=== PATIENT | male | born 1945 | race African-American/Black ===

== ENCOUNTER 2018-01-17 14:26 | Emergency (ER) | payer OTHER ==
[2018-01-17 15:14] VITALS: BMI 28.7
[2018-01-17] MEDS ORDERED: IBUPROFEN 600 MG TABLET (FP) PO ONE ×2 (15:21→15:50)
[2018-01-17 15:50] LABS: BASO % 0.6 % (0-2.0); HEMATOCRIT 44.1 % (35.4-49); HEMOGLOBIN 14.9 GM/dL (11.7-16.9); LYMPH % 22.8 % (8-40); MCH 31.4 pg (25.7-33.7); MCHC 33.9 g/dl (32.0-35.9); MEAN CELL VOLUME 92.8 fl (80-96); MEAN PLT VOLUME 7.7 fl (7.5-11.1); MONO % 7.8 % (3.8-10.2); NEUT % 66.8 % (42.8-82.8); PLATELET COUNT 174 K/MM3 (134-434); RBC 4.76 M/mm3 (4.00-5.60); RDW 13.8 % (11.9-15.9)
[2018-01-17 16:15] LABS: ALBUMIN 4.3 g/dl (3.4-5.0); ALK PHOS 62 U/L (45-117); ANION GAP 12 (8-16); BILIRUBIN,TOTAL 0.6 mg/dL (0.2-1.0); BLOOD UREA NITROGEN 17 mg/dL (7-18); CALCIUM 9.2 mg/dL (8.5-10.1); CHLORIDE 106 mmol/L (98-107); CO2 23 mmol/L (21-32); CREATININE 1.1 mg/dL (0.7-1.3); GLUCOSE,RANDOM 110 mg/dL (74-106); SGOT/AST 19 U/L (15-37); SGPT/ALT 25 U/L (12-78); SODIUM 141 mmol/L (136-145); TOT PROT 7.7 g/dl (6.4-8.2); URIC ACID 7.3 mg/dL (2.6-7.2)
[2018-01-17] MEDS ORDERED: COLCHICINE 0.6 MG TABLET (FP) PO ONE ×2 (16:27→17:49)
--- NOTE | 2018-01-17 16:33 | PDOC ---
History of Present Illness - General Chief Complaint: Chronic pain Stated Complaint: BACK PAIN Time Seen by Provider: 01/17/18 14:33 History Source: Patient Exam Limitations: No Limitations - History of Present Illness Initial Comments: 01/17/18 16:33 72-year-old male with history of gout and chronic back pain presents the ED with complaints of left knee pain worsening in severity over the past month. Patient came to [place] a few weeks ago from [place] via plane to visit his son and states pain and swelling increase. Patient states takes oxycodone for his back pain which did alleviate his knee slightly but not to the point that he can function and ambulate. Patient has no calf pain, history of DVT, difficulty breathing currently, chest pain, or skin discoloration. Timing/Duration: constant, getting worse Severity: moderate Associated Symptoms: reports: denies symptoms Past History - Travel Traveled outside of the country in the last 30 days: No - Past Medical History Allergies/Adverse Reactions: Allergies Allergy/AdvReac Type Severity Reaction Status Date / Time No Known Allergies Allergy Verified 01/17/18 15:00 Home Medications: Ambulatory Orders Amlodipine Besylate 10 mg PO DAILY 01/17/18 Gabapentin 400 mg PO TID 01/17/18 Hydrocodone/Acetaminophen [Hydrocodon-Acetaminophn 10-325] 1 each PO BID Ibuprofen [Motrin -] 600 mg PO TID PRN #21 tablet 01/17/18 Lisinopril [Prinivil -] 40 mg PO DAILY 01/17/18 COPD: No HTN: Yes - Suicide/Smoking/Psychosocial Hx Smoking History: Never smoked Hx Alcohol Use: No Drug/Substance Use Hx: No Patient Lives Alone: Yes Lives with/in: lives alone Review of Systems - Review of Systems Able to Perform ROS?: Yes Constitutional: No: Symptoms Reported HEENTM: No: Symptoms Reported Respiratory: No: SOB with Exertion Musculoskeletal: Yes: Back Pain (low chronic), Joint Pain (left knee), Joint Swelling (left knee), Joint Stiffness. No: Muscle Pain Integumentary: No: Symptoms Reported Neurological: No: Symptoms reported Hematologic/Lymphatic: No: Symptoms Reported *Physical Exam - Vital Signs Last Vital Signs Temp Pulse Resp BP Pulse Ox 98.2 F 105 H 20 149/88 95 01/17/18 14:58 01/17/18 14:58 01/17/18 14:58 01/17/18 14:58 01/17/18 14:58 - Physical Exam General Appearance: Yes: Nourished, Appropriately Dressed. No: Apparent Distress Respiratory/Chest: positive: Lungs Clear, Normal Breath Sounds. negative: Respiratory Distress, Accessory Muscle Use Cardiovascular: positive: Regular Rhythm, Regular Rate (98). negative: Murmur Extremity: positive: Normal Capillary Refill, Normal Range of Motion, Tender ( generalized left patella). negative: Normal Inspection (warm to touch with mild edema over anterior patella) Integumentary: positive: Normal Color, Warm, Moist Neurologic: positive: Motor Strength 03/30 ED Treatment Course - LABORATORY CBC & Chemistry Diagram: 01/17/18 15:27 01/17/18 15:27 - ADDITIONAL ORDERS Additional order review: Laboratory Results 01/17/18 15:27 Sodium 141 Potassium 4.0 Chloride 106 Carbon Dioxide 23 Anion Gap 12 BUN 17 Creatinine 1.1 Creat Clearance w eGFR > 60 Random Glucose 110 H Uric Acid 7.3 H Calcium 9.2 Total Bilirubin 0.6 AST 19 ALT 25 Alkaline Phosphatase 62 Total Protein 7.7 Albumin 4.3 01/17/18 15:27 RBC 4.76 MCV 92.8 MCHC 33.9 RDW 13.8 MPV 7.7 Neutrophils % 66.8 Lymphocytes % 22.8 Monocytes % 7.8 Eosinophils % 2.0 Basophils % 0.6 - RADIOLOGY Radiology Studies Ordered: Category Date Time Status KNEE 3 POS-LEFT [RAD] Stat Radiology 01/17/18 15:20 Ordered DUPLEX VASCUL US-1 LEG [US] Stat Ultrasound 01/17/18 15:20 Ordered - Medications Given in the ED: ED Medications Discontinued Medications Generic Name Dose Route Start Last Admin Trade Name Freq PRN Reason Stop Dose Admin Ibuprofen 600 mg 01/17/18 15:21 01/17/18 15:53 Motrin - PO 01/17/18 15:22 600 mg ONCE ONE Administration Medical Decision Making - Medical Decision Making 01/17/18 17:02 Patient in for evaluation of left knee pain moderately relieved with his oxycodone which he takes for his back pain. Patient with history of gout and on exam presents with swelling and tenderness and increased warmth to left patellar region. Patient with recent travel from [place] via plane 3 weeks ago. Differential diagnosis: Gout, septic arthritis, knee effusion, DVT. Patient ordered for knee x-ray, labs, and duplex of the lower extremity. Patient also ordered for colchicine if uric acid is elevated. 01/17/18 17:04 Laboratory Tests 01/17/18 01/17/18 15:27 15:27 WBC 5.0 Hgb 14.9 Hct 44.1 Neutrophils % 66.8 Sodium 141 Potassium 4.0 Chloride 106 Carbon Dioxide 23 Anion Gap 12 BUN 17 Creatinine 1.1 Creat Clearance w eGFR > 60 Random Glucose 110 H Uric Acid 7.3 H AST 19 ALT 25 Patient currently and ultrasound and awaiting colchicine dosing 01/17/18 17:48 There is no DVT identified involving the left leg. Patient to be given second dose of colchicine and discharged home with Motrin. 01/17/18 18:11 X-ray of the knee shows no acute dislocation or fracture. No patellar effusion noted *DC/Admit/Observation/Transfer Diagnosis at time of Disposition: Gout of left knee - Discharge Dispostion Disposition: HOME Condition at time of disposition: Improved - Prescriptions Prescriptions: Ibuprofen [Motrin -] 600 mg PO TID PRN #21 tablet PRN Reason: Pain - Referrals Referrals: ON STAFF,NOT [Primary Care Provider] - - Patient Instructions Printed Discharge Instructions: DI for Gout Additional Instructions: Please take Motrin as needed for discomfort. - Post Discharge Activity
[2018-01-17] MEDS ORDERED: COLCHICINE 0.6 MG TABLET (FP) ONE (18:23)
[2018-01-17 19:03] VITALS: BP 125/82; PULSE 74; TEMP 97.5
== END 2018-01-17 19:30 | disposition home or self-care (01) ==
LOC: JER 14:26
DX: M10.9 Gout, unspecified (principal); I10 Essential (primary) hypertension
CPT/HCPCS: 36415; 73562-TC-LT-FY; 80053; 84550; 85025; 93971-TC; 99282-25